=== PATIENT | female | born 1985 | race Caucasian/White ===

== ENCOUNTER 2025-02-08 18:47 | Emergency (ER) | payer OTHER, SELFPAY ==
[2025-02-08 18:48] VITALS: BP 118/84; PULSE 89; RESP 17; TEMP 36.7; O2SAT 100; BMI 34.3
--- NOTE | 2025-02-08 20:06 | EX.ED.DYSGE1 ---
HPI History of Present Illness Chief Complaint: Dizziness Narrative Narrative: 39-year-old female past medical history of chronic dizziness for which she receives chiropractic manipulation of her neck presents with nausea, vomiting, vertigo, and lightheadedness/near syncope that started at 6 PM. She was having dizziness earlier in the week and on Thursday, while she started her menses, she had manipulation. This improved her dizziness. She was fine Thursday afterwards and all day Thursday until this evening at 6 PM, around 2 hours ago, when she experienced nausea and vomiting along with dizziness. It also got to the point that after the spinning eased up a little bit, she was near syncopal. She complains of epigastric pain as well. No recent fevers or chills. No exacerbating or alleviating factors. PFSH PFSH Medical History no medical history Home Medications ?Medication ?Instructions ?Recorded ?Last Taken ?Type NK 02/08/25 Unknown History dicyclomine 20 mg tablet 20 mg PO TID PRN abdominal pain 02/08/25 Unknown Rx #20 tabs meclizine 25 mg tablet 25 mg PO 4X/DAY PRN PRN Dizziness 02/08/25 Unknown Rx #20 tabs Allergy/AdvReac Type Severity Reaction Status Date / Time No Known Allergies Allergy Verified 02/08/25 18:50 Family History no significant family his Surgical History no surgical history Social History Smoking Status: Never smoker ROS ROS ED ROS Narrative Review of systems positive for nausea and vomiting without any hematemesis. Positive vertiginous type symptoms as well as near syncope/lightheadedness. Positive epigastric abdominal pain. Patient is vague and saying whether or not she has neck pain or headache and responds with not really. EXAM Physical Exam Narrative Exam Narrative: Afebrile. Vital signs noted. Nontoxic-appearing. Cardiovascular examination of is a regular rate and rhythm. Lungs are clear to auscultation bilaterally. Abdomen is soft and nontender without guarding or rebound. Positive bowel sounds. Neurological examination is nonfocal and nonlateralizing. HEENT examination reveals PERRL, EOMI, no noted nystagmus. Neck is soft and supple without vertebral point tenderness or bony step-off. Const Vital Signs: 02/08/25 18:48 02/08/25 19:44 02/08/25 20:48 Temperature 98.1 F Temperature Source Temporal Pulse Rate 89 98 Pulse Rate [Lying] Pulse Rate [Sitting (for 1 minute prior to obtaining)] Pulse Rate [Standing (for 1 minute prior to obtaining)] Respiratory Rate 17 18 Respiratory Effort Normal Non-Labored Respiratory Pattern Normal Blood Pressure 118/84 H 133/77 H Blood Pressure [Lying] Blood Pressure [Sitting (for 1 minute prior to obtaining)] Blood Pressure [Standing (for 1 minute prior to obtaining)] Blood Pressure Mean 95 95 Blood Pressure Mean [Lying] Blood Pressure Mean [Sitting (for 1 minute prior to obtaining)] Blood Pressure Mean [Standing (for 1 minute prior to obtaining)] Pulse Ox 100 100 Oxygen Delivery Method Room Air Room Air 02/08/25 20:49 02/08/25 22:00 02/08/25 22:00 Temperature 98.2 F Temperature Source Pulse Rate 89 89 Pulse Rate [Lying] 87 Pulse Rate [Sitting (for 1 minute prior to obtaining)] 98 Pulse Rate [Standing (for 1 minute prior to obtaining)] 94 Respiratory Rate 18 18 Respiratory Effort Respiratory Pattern Blood Pressure 141/76 H 141/76 H Blood Pressure [Lying] 123/85 H Blood Pressure [Sitting (for 1 minute prior to obtaining)] 125/88 H Blood Pressure [Standing (for 1 minute prior to obtaining)] 130/95 H Blood Pressure Mean 97 97 Blood Pressure Mean [Lying] 97 Blood Pressure Mean [Sitting (for 1 minute prior to obtaining)] 100 Blood Pressure Mean [Standing (for 1 minute prior to obtaining)] 106 Pulse Ox 100 100 Oxygen Delivery Method Room Air MDM MDM MDM Narrative Medical decision making narrative: Differential diagnosis includes but not limited to intravascular volume depletion versus dehydration versus other electrolyte imbalance for her near syncope. She may have more of a vertiginous type symptoms related to benign positional vertigo. She may have orthostatic hypotension as well. My main concern as well would be for vertebral artery dissection affecting her posterior circulation as she had manipulation by chiropractor of her neck. Her states that she had axial manipulation. I do feel CT and CTA of the head and neck are indicated to look at the vessels. I have low concern for stroke or clot. She will be bolused normal saline and given meclizine as well. I reviewed her laboratory work and she has a normal white count of 6.2 with hemoglobin normal at 13.2, hematocrit 39.1, platelet count normal at 246. Sodium is 139 and potassium normal 3.7, BUN of 13 creatinine 0.94. Glucose appropriately elevated at 108 with a normal anion gap of 14. LFTs show slight elevation of AST at 41 with ALT 53, normal alk phos. I think this is nonspecific and may be secondary to her vomiting. Lipase is normal at 43 so I doubt pancreatitis. Serum test is negative. I reviewed the radiology reports of the CT of the brain and a CTA of the head and neck. There is no evidence of a dissection or large vessel occlusion. I doubt posterior circulation problem. After meclizine, she feels improved and was able to ambulate to the bathroom. Regarding her abdominal pain, I do not feel she needs a CT of the abdomen pelvis and feels she probably has more of a gastritis. She has a nonsurgical abdomen. She was given Bentyl for cramping. She was written prescriptions for meclizine and Bentyl. I feel she can be discharged to follow-up. Patient and are agreeable to the plan. Return instructions to the emergency department were reviewed. Disposition is discharged home in stable condition. History & Record Review Discussion w/independent historian: Patient Lab Data Attestation: I reviewed the patient's lab results. Labs: Laboratory Results - last 24 hr 02/08/25 19:37 WBC 6.2 RBC 4.80 Hgb 13.2 Hct 39.1 MCV 81.5 MCH 27.5 MCHC 33.8 RDW Std Deviation 36.6 RDW Coeff of Lisette 12.2 Plt Count 246 MPV 10.9 Immature Gran % (Auto) 0.300 Neut % (Auto) 67.7 Lymph % (Auto) 25.0 [place] % (Auto) 5.9 Eos % (Auto) 0.8 Baso % (Auto) 0.3 Absolute Neuts (auto) 4.2 Absolute Lymphs (auto) 1.54 Nucleated RBC % 0 Sodium 139 Potassium 3.7 Chloride 103 Carbon Dioxide 21.9 Anion Gap 14 BUN 13 Creatinine 0.94 Estim Creat Clear Calc 88.53 Est GFR (MDRD) Non-Af 80 BUN/Creatinine Ratio 14.0 Glucose 108 H Calcium 9.6 Total Bilirubin 0.38 AST 41 H ALT 53 H Alkaline Phosphatase 82 Total Protein 7.7 Albumin 4.4 Globulin 3.2 Albumin/Globulin Ratio 1.4 Lipase 43 Serum , Qual NEGATIVE Radiography Diagnostic Testing: Clinical Impression(s) from Imaging Studies Head/Neck CTA 02/08/25 20:25 IMPRESSION: 1. No acute intracranial abnormality. 2. No large vessel high-grade stenosis, occlusion or dissection. 3. No acute osseous abnormality. 4. Right thyroid nodule measuring up to 2 cm. Recommend further evaluation with dedicated ultrasound. One or more dose reduction techniques were used (e.g., Automated exposure control, adjustment of the mA and/or kV according to patient size, use of iterative reconstruction technique). [facility] Triage Chief Complaint: Dizziness ED Provider: Dileep Frias Dx/Rx/DC Orders Clinical Impression: Vertigo, Near syncope, Abdominal pain Instructions: ED Abdominal Pain Unkn Cause Fem, ED Dizziness, Uncertain Cause, ED Near-Fainting, Uncertain Cause Prescriptions: New meclizine 25 mg tablet 25 mg PO 4X/DAY PRN PRN (Reason: Dizziness) Qty: 20 0RF dicyclomine 20 mg tablet 20 mg PO TID PRN (Reason: abdominal pain) Qty: 20 0RF No Action NK Primary Care Provider: Vincent Albright Referrals: Care Physician,No Primary [Non-Staff] - Activity Restrictions/Additional Instructions: Return with increased pain, syncope, new or worsening symptoms. Print Language: Hebrew Disposition Disposition: Home, Self Care
[2025-02-08 20:17] LABS: Absolute Lymphocyte Count 1.54 X10^3/uL (0.83-4.51); Absolute Neutrophil Count 4.2 X10^3/uL (2.0-7.7); Basophil# 0.02 X10^3/uL; Basophil% 0.3 % (0-1); Eosinophil# 0.05 X10^3/uL; Eosinophils% 0.8 % (0-5); Hematocrit 39.1 % (37-47); Hemoglobin 13.2 g/dL (12.0-15.0); Lymphocyte # 1.54 X10^3/ul (0.83-4.51); Mean Corp Hgb Conc 33.8 g/dL (32-36); Mean Corpuscular Hgb 27.5 pg (27.0-32.0); Mean Corpuscular Volume 81.5 fL (81-99); Mean Platelet Vol. 10.9 fl (6.2-12.0); Monocyte# 0.36 X10^3/uL; Monocyte% 5.9 % (0-10); NRBC Flagged by Analyzer 0 % (0-5); Neutrophil # 4.16 X10^3/uL (2.7-7.7); Neutrophil % 67.7 % (47-70); Platelet Count 246 K/mm3 (150-450); RBC Distribution Width CV 12.2 % (11.6-14.6); RBC Distribution Width SD 36.6 fl (35.1-43.9); White Blood Count 6.2 K/mm3 (4.4-11.0)
--- NOTE | 2025-02-08 20:25 | CT_ITS ---
PROCEDURE: CT brain without IV contrast CTA head and neck with IV contrast REASON FOR EXAM: DIZZINESS, RECENT NECK MANIPULATION BY CHIROPRACTO TECHNIQUE: Multiple contiguous axial images of the brain were obtained without the administration of intravenous contrast. Contiguous postcontrast images of the head and neck were also obtained after the administration of intravenous contrast. Two-dimensional and three-dimensional MIP coronal and sagittal reformatted images were reconstructed. Low-dose imaging technique was utilized. COMPARISON: None. FINDINGS: Head. No evidence of acute intracranial hemorrhage, midline shift or mass effect. No definite CT evidence of acute territorial cortical infarction. No hydrocephalus. Cerebral volume is age-appropriate. Calvarium is intact. Paranasal sinuses and mastoid air cells are clear. No large vessel high-grade stenosis or occlusion involving the [id number]. The sizable aneurysm. Dural venous sinuses are patent. No pathologic enhancement. Neck. Patent three-vessel arch. No significant subclavian artery stenosis. Right common, internal and external carotid arteries are without significant stenosis. Left common, internal and external carotid arteries are without significant stenosis. Bilateral vertebral arteries and basilar artery are without significant stenosis. Right thyroid/isthmic nodule measuring 2.0 x 1.3 cm. No suspicious adenopathy. Lung apices are clear. No acute osseous abnormality. CT/CTA Head AND Neck W/ Contrast IMPRESSION: 1. No acute intracranial abnormality. 2. No large vessel high-grade stenosis, occlusion or dissection. 3. No acute osseous abnormality. 4. Right thyroid nodule measuring up to 2 cm. Recommend further evaluation wit h dedicated ultrasound. One or more dose reduction techniques were used (e.g., Automated exposure contr ol, adjustment of the mA and/or kV according to patient size, use of iterative reconstruction technique). Reading Location: [facility]
[2025-02-08 20:41] LABS: Internal QC Validated? YES +Cl - CLEAR BKGD; Pregnancy, Serum, hCG Quali. NEGATIVE Negative
[2025-02-08] MEDS: 0.9% Normal Saline (1000mL) 1,000 ML 1000 ML IV (20:45)
[2025-02-08] MEDS: Meclizine HCl 25 MG Tablet PO (20:46)
[2025-02-08 20:48] VITALS: BP 133/77; PULSE 98; RESP 18; O2SAT 100
[2025-02-08 20:49] VITALS: BP 123/85; BP 125/88; BP 130/95; PULSE 87; PULSE 94; PULSE 98
[2025-02-08 21:03] LABS: ALB/GLOB Ratio 1.4 RATIO (0.9-2.4); AST(SGOT) 41 U/L (<=31); Alanine Aminotransfer ALT/SGPT 53 U/L (<=34); Albumin, Serum 4.4 g/dL (3.5-5.0); Alkaline Phosphatase 82 U/L (35-104); Anion Gap 14 (5-15); BUN 13 mg/dL (4-19); Calcium,Total 9.6 mg/dL (7.6-11.0); Carbon Dioxide 21.9 mmol/L (21.0-32.0); Chloride 103 mmol/L (98-108); Creatinine, Serum 0.94 mg/dL (0.70-1.20); EST Glomerular Filtration Rate 80 (>60); Estimated Creatinine Clearance 88.53 ml/min (50-250); Globulin 3.2 g/dL (2.2-4.2); Glucose 108 mg/dL (70-99); Lipase 43 U/L (13-75); Potassium 3.7 mmol/L (3.3-5.1); Protein, Total 7.7 g/dL (5.9-8.4); Sodium Level 139 mmol/L (133-145); Total Bilirubin 0.38 mg/dL (0.00-1.30)
[2025-02-08] MEDS: Dicyclomine 10 MG Capsule 20 MG PO (21:45)
[2025-02-08 22:00] VITALS: BP 141/76; PULSE 89; RESP 18; TEMP 36.8; O2SAT 100
== END 2025-02-08 22:13 | disposition home or self-care (01) ==
PROVIDERS: Emergency Provider Emergency Medicine; PCP Family Medicine; Visit Provider Emergency Medicine
DX: R42 Dizziness and giddiness (principal); R55 Syncope and collapse; R10.13 Epigastric pain
CPT/HCPCS: 70496; 70498; 80053; 83690; 84703; 85025; 96360; 99285; Q9967; A4216

== ENCOUNTER → 2025-02-23 | Outpatient (CLI) | payer SELFPAY ==
--- NOTE | 2025-02-23 10:38 | US_ITS ---
PROCEDURE: THYROID 02/23/2025 REASON FOR EXAM: 39-year-old female, right thyroid nodule. TECHNIQUE: Thyroid ultrasound COMPARISON: CTA head and neck 02/08/2025. FINDINGS: Right thyroid lobe measures 4.2 x 1.6 x 1.6 cm. Left thyroid lobe measures 3.3 x 1.2 x 1.2 cm. Isthmus thickness is0.4 cm. Thyroid Size: Normal Background Echotexture: Homogeneous Thyroid Nodules: One right thyroid nodule: Measures 2.4 x 2.3 x 0.9 cm, mixed cystic and solid, isoechoic, wider than tall, smooth without calcifications. TR-3. US/Thyroid IMPRESSION: Right TR-3 nodule, which meets criteria for 1 year follow-up. Reading Location: [id number]
--- NOTE | 2025-02-23 10:38 | US_ITS ---
PROCEDURE: ABDOMEN LIMITED 02/23/2025 REASON FOR EXAM: 39-year-old female, right upper quadrant pain. COMPARISON: None. FINDINGS: Liver: Grossly normal size and echotexture. The liver measures 15.0 cm. There is a large right abdominal/adnexal cysts extending from the liver to the uterus measuring 24.5 x 22.3 x 14.1 cm. The bile ducts are within normal limits. The main portal vein is patent with normal direction of flow. Gallbladder: Multiple echogenic gallstones are identified. No gallbladder wall thickening or pericholecystic fluid. Negative Graham sign reported by wood technologist. Common bile duct: Normal measuring 0.5 cm. Pancreas: Obscured by bowel gas. Other: Visualized portions of the right kidney are unremarkable. No right upper quadrant ascites. US/Abdomen Limited IMPRESSION: Large simple appearing cyst within the right abdomen extending into the pelvis, which appears to arise from the liver. However this is incompletely evaluated by ultrasound examination. CT abdomen pelvis is recommended for further evaluation to exclude neoplastic process. Reading Location: [id number]
== END | disposition home or self-care (01) ==
PROVIDERS: PCP Family Medicine; Referring Provider Nurse Practitioner Family; Visit Provider Nurse Practitioner Family
DX: R10.11 Right upper quadrant pain (principal)
CPT/HCPCS: 76536; 76705